=== PATIENT | male | born 1960 | race African-American/Black ===

== ENCOUNTER 2017-01-18 04:28 | Emergency (ER) | payer SELFPAY ==
[~2017-01-18] VITALS: Ht 185.4 cm; Wt 122.5 kg
--- NOTE | 2017-01-18 04:38 | NUR ---
PT PRESENTED TO THE ER WITH A C/O LUE PAIN AND EDEMA MORE THAN NORMAL S/P FALL AT MIDNIGHT. PT STATED THAT HE FELL FROM WC. PT WAS TRIAGED IN ROOM #3 AND PLACED ON THE MONITOR AND CONTINUOUS PULSE OX.
--- NOTE | 2017-01-18 05:32 | NUR ---
XRAY IN PROGRESS AT THE BEDSIDE
[2017-01-18] MEDS ORDERED: ACETAMINOPHEN ES 500 MG TABLET ONE (06:39)
--- NOTE | 2017-01-18 06:53 | NUR ---
Patient discharged to home in stable condition. Written and verbal after care instructions given. Patient verbalizes understanding of instruction. PT REFUSED TO SIGN ACI. PT LEFT VIA WC. VSS.
[2017-01-18 06:55] VITALS: BP 125/72
[2017-01-18] MEDS ORDERED: ACETAMINOPHEN 325 MG TABLET PO ONE (07:00)
== END 2017-01-18 06:56 | disposition home or self-care (01) ==
LOC: ER 04:28
DX: S40.022A Contusion of left upper arm, initial encounter (principal); G40.909 Epilepsy, unspecified, not intractable, without status epilepticus; M54.30 Sciatica, unspecified side; W05.0XXA Fall from non-moving wheelchair, initial encounter; Y93.89 Activity, other specified; Y92.89 Other specified places as the place of occurrence of the external cause; Y99.9 Unspecified external cause status; Z98.890 Other specified postprocedural states
CPT/HCPCS: 73060-TC; A4606; Z7610

== ENCOUNTER 2017-06-21 04:40 | Emergency (ER) | payer MEDICAID ==
[~2017-06-21] VITALS: Ht 172.7 cm; Wt 72.6 kg
[2017-06-21] MEDS ORDERED: HYDROCODONE/APAP 5/325MG 1 EACH TABLET PO ONE (05:00)
--- NOTE | 2017-06-21 05:00 | NUR ---
PT PRESENTS AFTER MECHANICAL FALL WHILE TRANSFERRING SELF FROM WHEELCHAIR. PT STATES HE HIT THE BACK AND RIGHT SIDE OF HIS HEAD, DENIES LOC, STATES HE HAS HX OF SEIZURES 'BUT HAS NOT HAD ONE IN A LONG TIME'. PT ALSO C/O LEFT ANKLE PAIN RADIATING TO KNEE, LEFT THIGH PAIN, AND LEFT UPPER EXTREMITY PAIN WITH PREVIOUS HX OF INJURY TO LEFT ARM NOT FROM THIS INCIDENT. PT A/OX4, ABLE TO FOLLOW VERBAL COMMANDS, AND ANSWERS QUESTIONS APPROPRIATELY. PT STATES HAS LIMITED ROM HIS BASELINE AND NAVIGATES HIS COMMUNITY B WHEELCHAIR. PT IS HOMELESS
[2017-06-21] MEDS ORDERED: HYDROCODONE/APAP 5/325MG 1 EACH TABLET ONE (05:02)
--- NOTE | 2017-06-21 05:15 | NUR ---
PIXIS OMNICELL MALFUNCTION MEDICATION PULLED FROM [facility]. PT RECEIVED 1 DOSE OF NORCO 5/325 MG AT 0510
[2017-06-21] MEDS ORDERED: CEPHALEXIN MONOHYDRATE 500 MG CAPSULE PO ONE ×2 (05:51→06:00)
--- NOTE | 2017-06-21 06:19 | NUR ---
PT DC TO HOME, ADVISED ON DC INSTRUCTIONS AND TO FOLLOW UP WITH PMD DIRECTED. RX GIVEN TO PT, PT ASSISTED WITH DRESSING AND TRANSFER TO WHEELCHAIR. PT ALERT AND ORIENTED. STRICT ER RETURN PROTOCOL GIVEN, VERBAL UNDERSTANDING RETURNED. SPLINT CARE AND PURPOSE REINFORCED
[2017-06-21 06:35] VITALS: BP 131/85
== END 2017-06-21 06:44 | disposition home or self-care (01) ==
LOC: ER 04:41
DX: S01.03XA Puncture wound without foreign body of scalp, initial encounter (principal); S93.402A Sprain of unspecified ligament of left ankle, initial encounter; S00.03XA Contusion of scalp, initial encounter; G40.909 Epilepsy, unspecified, not intractable, without status epilepticus; R51 Headache; M54.30 Sciatica, unspecified side; G89.29 Other chronic pain; Z59.0 Homelessness; Z98.890 Other specified postprocedural states; W05.0XXA Fall from non-moving wheelchair, initial encounter; Y93.89 Activity, other specified; Y92.89 Other specified places as the place of occurrence of the external cause; Y99.8 Other external cause status
CPT/HCPCS: 29515; 70450; 73610; 99284; A4606; Z7610

== ENCOUNTER 2018-02-19 05:10 | Emergency (ER) | payer MEDICAID, OTHER ==
[~2018-02-19] VITALS: Ht 185.4 cm; Wt 127.0 kg
[2018-02-19 07:10] VITALS: BP 135/90
--- NOTE | 2018-02-19 08:18 | NUR ---
Patient discharged to home in stable condition. Written and verbal after care instructions given. Patient verbalizes understanding of instruction.
== END 2018-02-19 07:11 | disposition home or self-care (01) ==
LOC: ER 05:11
DX: S80.812A Abrasion, left lower leg, initial encounter (principal); S80.811A Abrasion, right lower leg, initial encounter; M25.512 Pain in left shoulder; G40.909 Epilepsy, unspecified, not intractable, without status epilepticus; M54.30 Sciatica, unspecified side; Z60.2 Problems related to living alone; Z98.890 Other specified postprocedural states; W05.0XXA Fall from non-moving wheelchair, initial encounter; Y93.89 Activity, other specified; Y92.89 Other specified places as the place of occurrence of the external cause; Y99.8 Other external cause status
CPT/HCPCS: 73030-TC; 73080-TC; A4606; Z7610